=== PATIENT | male | born 1940 | race Caucasian/White ===

== ENCOUNTER → 2017-12-09 | Outpatient (CLI) | payer OTHER, MEDICARE ==
[~2017-12-09] MED LIST: FLOMAX PO; LIPITOR10 MG; PERCOCET 10-321 EACH PO; QUINAPRIL 20 MG20 MG; ZOFRAN4 MG PO
== END ==
LOC: RAD 09:43
DX: R05 Cough (principal)

== ENCOUNTER 2019-08-20 15:57 | Emergency (ER) | payer OTHER ==
[~2019-08-20] VITALS: Ht 175.3 cm; Wt 77.1 kg
--- NOTE | ~2019-08-20 | EMS ---
[address] [address] EMS Patient Care Report Name: KAYLENE KUMAR III Room #: REG RODRIGO Roca#: [id number] Admission: 08/20/19 Attend Phys: Discharge: Date of : 44 Report #: [id number] THIS REPORT FOR: //name// Report Transmitted: 08/20/2019 16:27 EMS Care Summary [facility] MED-ACT Incident [id number] @ 08/20/2019 15:22 Incident Location [address] [place] [address] Patient KAYLENE KUMAR Male, 79 Years 1940 Patient Address [address] [place] [address] Patient History Hypertension,Cardiac - Stent,Type 2 Diabetes, Patient Allergies No known allergies, Patient Medications Metformin, Benicar, Chief Complaint "I stood up and felt like I was going to faint." Disposition Transported No Lights/[place] Dispatch Reason Heart Problems/AICD Transported To [facility] Narrative "I felt like I was going to faint." Dispatched to this location emergent for a male PT with complaints of an irregular heart beat. Arrive on scene to find the PT sitting in a chair with [address] [address] EMS Patient Care Report Name: KAYLENE KUMAR III Room #: REG RODRIGO Roca#: [id number] Admission: 08/20/19 Attend Phys: Discharge: Date of : 42 Report #: [id number] at side. PT reports he was attempting to stand up from the table when he felt like he was going to faint. He reports getting lightheaded and diaphoretic. PT denies any chest pain and denies any SOA. PT denies any palpitations. PT reports having a history of STENT placement in his RCA in 2003. PT denies having a pacemaker. He reports his candlemaker is at [facility]. PT reports one month earlier he had hip replacement surgery. PT denies any complaints while with EMS. EMS notes non conducting PVC's. PT reports prior to his hip replacement surgery he had PVC's as well. PT reports he is scheduled to see his candlemaker on Saturday. Initial Vitals @15:27P: 35,R: 18,BP: 182/76,Pain: 0/10,GCS: 15,SpO2: 99,Revised Trauma: 12,[place] Suspected: false @15:43P: 35,R: 18,BP: 173/72,Pain: 0/10,GCS: 15,SpO2: 98,Revised Trauma: 12, @15:31P: 38,R: 18,BP: 182/78,GCS: 15,Glucose: 130,SpO2: 97,Revised Trauma: 12,[place] Suspected: false Assessments @15:40MENTAL:Person Oriented,Time Oriented,Place Oriented,Event Oriented,SKIN:HEENT:Head/Face: No Abnormalities,Neck/Airway: No Abnormalities,LUNG SOUNDS:General: No Abnormalities,ABDOMEN:General: No Abnormalities,PELVIS//GI:EXTREMITIES:PULSE:NEURO: Impression Cardiac arrhythmia/dysrhythmia Procedures @15:42Saline Lock 10cc (18 ga) Site: Antecubital-LeftResponse: ImprovedSucceeded@15:3112-Lead ECGResponse: ImprovedSucceeded Timeline 15:22,Call Received 15:22,Psap Call 15:22,Dispatched 15:23,En Route 15:26,On Scene 15:27,At Patient 15:27,BP: 182/76 M,PULSE: 35,RR: 18 R,SPO2: 99 Ox,ETCO2: ,BG: ,PAIN: 0,GCS: 15, 15:31,12-Lead ECG,Response: ImprovedSucceeded, 15:31,BP: 182/78 M,PULSE: 38,RR: 18 R,SPO2: 97 Ox,ETCO2: ,B,PAIN: ,GCS: 15, 15:38,Depart Scene 15:42,Saline Lock 10cc 18 ga Site: Antecubital-Left,Response: ImprovedSucceeded, 15:43,BP: 173/72 M,PULSE: 35,RR: 18 R,SPO2: 98 Ox,ETCO2: ,BG: ,PAIN: 0,GCS: 15, 15:54,At Destination 16:15,Call Closed [facility] [address] [place] [address] EMS Patient Care Report Name: KAYLENE KUMAR III Room #: [id number] Admission: 08/20/19 Attend Phys: Discharge: Date of : 42 Report #: [id number] Disclaimer v1.1 Copyright 2019 [employer] This EMS Care Summary contains data elements from the applicable legal record (which may be displayed differently). It is designed to provide pertinent information for the following purposes: continuity of care, clinical quality, and state data reporting. The complete legal record is available to ED staff and administrators of the receiving hospital in [employer] Patient Tracker. All data is provided "as is."
[2019-08-20 16:39] LABS: HEMATOCRIT 38.4 % (42.0-52.0); HEMOGLOBIN 12.7 gm/dL (14.0-18.0); MCH 29.8 pg (26.0-34.0); MCHC 33.1 g/dL (28.0-37.0); MCV 90.1 fL (80.0-100.0); RBC 4.27 mil/uL (4.50-6.00); RDW 13.8 % (10.5-14.5); WBC 7.2 thou/uL (4.0-11.0)
[2019-08-20 16:47] LABS: ANION GAP 9 mmol/L (7-16); BUN 27 mg/dL (7-18); CALCIUM 9.7 mg/dL (8.5-10.1); CHLORIDE 101 mmol/L (98-107); CO2 27 mmol/L (21-32); CREATININE 1.2 mg/dL (0.7-1.3); GLUCOSE 193 mg/dL (74-106); SODIUM 137 mmol/L (136-145)
[2019-08-20 16:56] LABS: TROPONIN-I <0.06 ng/mL (<0.06)
[2019-08-20 20:25] VITALS: BP 137/47
--- NOTE | 2019-08-21 08:06 | EKG ---
[place] [address] [place] [address] ELECTROCARDIOGRAM REPORT Name: KAYLENE KUMAR III 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: [employer] : 1940 Requested By: Blu Thompson Order Number: [id number] MD: Ayden Holly Measurements Intervals [place] Rate: 97 P: 44 [place]: 209 QRS: 53 QRSD: 99 T: -5 QT: 367 QTc: 466 Interpretive Statements Sinus rhythm Ventricular bigeminy Borderline T abnormalities, inferior leads Compared to ECG 10/13/2004 06:57:52 Ventricular premature complex(es) now present Sinus bradycardia no longer present Electronically Signed On 08-21-2019 8:06:16 CDT by Ayden Holly [email or web address] <ELECTRONICALLY SIGNED> By: Ayden Holly MD, [facility] 08/21/19 0806 1607 160 Ayden Holly MD, [facility] /EPI
== END 2019-08-20 20:27 | disposition home or self-care (01) ==
LOC: ER 15:57
PROVIDERS: Emergency Medicine
DX: R55 Syncope and collapse (principal); R00.8 Other abnormalities of heart beat; Z95.2 Presence of prosthetic heart valve; Z96.649 Presence of unspecified artificial hip joint; Z90.89 Acquired absence of other organs

== ENCOUNTER 2019-10-06 06:53 | Observation (INO) | payer OTHER ==
[2019-10-06] VITALS (15 sets, daily range): BP systolic 104–146; BP diastolic 28–67
[~2019-10-06] VITALS: Ht 175.3 cm; Wt 77.1 kg
[2019-10-06] MEDS ORDERED: PROSCAR 5MG TABL5 MG PO (07:31)
[2019-10-06] MEDS ORDERED: JARDIANCE25 MG PO (07:31)
[2019-10-06] MEDS ORDERED: METFORMIN HCL500 M3 PO (07:32)
[2019-10-06] MEDS ORDERED: OLMESARTAN-HCT1 EAC1 PO (07:32)
--- NOTE | 2019-10-06 08:40 | EKG ---
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 Clerk: [facility] : 1940 Requested By: Ayden Holly Order Number: [id number] MD: Chad Nicole Measurements Intervals [place] Rate: 79 P: 45 [place]: 219 QRS: 52 QRSD: 98 T: -1 QT: 401 QTc: 460 Interpretive Statements Sinus rhythm Multiple premature complexes, vent & supraven Borderline prolonged LA interval Borderline repolarization abnormality Compared to ECG 08/20/2019 16:07:56 Ventricular premature complex(es) no longer present T-wave abnormality no longer present Electronically Signed On 10-06-2019 8:40:33 SUPERVISOR MALTED MILK by Chad Nicole [email or web address] <ELECTRONICALLY SIGNED> By: Chad Nicole MD 10/06/19 0840 Chad Nicole MD /EPI
--- NOTE | 2019-10-06 09:37 | CATHLAB ---
[facility] [address] [place] [address] INVASIVE PROCEDURE REPORT Name: KAYLENE KUMAR TOM Room #: 170-1 [facility]#: [id number] Admission: 10/06/19 Attend Phys: Ayden Holly, Discharge: Date of : 42 Report #: [id number] THIS REPORT FOR: //name// APPROVED REPORT Study performed: 10/06/2019 07:56:46 Patient Details Patient Status: Out-Patient Room #: The patient is a 79 year-old male Event Personnel Ayden Holly Hard Candy Batch Mixer, Effie Astorga RTR, OAKES MACHINE OPERATOR Monitor, Dilcia Ratliff RN RN, Beckie Loving RN RN, Joseph Appiah RTR Scrub Procedures Performed Art Access - R femoral artery* Left Heart Cath w/or w/o Coronaries [id number] [facility] Place w/wo Plasty Single OM [id number] [address] Initial Mod Sed Same Phys/QHP Gr5y 677162 37462 Mod Sed Same Phys/QHP Ea 402443 Hemostasis w/ Mynx Indication Chest pain Procedure Narrative The patient was brought electively to the Cardiac Catheterization Laboratory and was prepped and draped in a sterile manner. The Right Groin^ was infiltrated with 1% Lidocaine subcutaneous anesthesia. A PINNACLE 6FR Sheath #[id number] sheath was inserted into the RFA^. Coronary angiography was performed using coronary diagnostic catheters. The right coronary system was accessed and visualized with a JR4 catheter. The left coronary system was accessed and visualized with a JL4 catheter. The left ventricle was accessed and visualized with a angled Pigtail catheter. Left ventricular/Aortic Valve gradient assessed via catheter pullback. Left ventriculogram was performed in 30 degree projection. Closure device was deployed with a 6 Fr MYNXGRIP 6/7F #[id number]. The patient tolerated the procedure well and there were no complications associated with the procedure. There was no hematoma. Intraoperative Conscious Sedation Sedation start time: 07:51 Case end Time: 08:53 Fentanyl 50 mcg Versed [address] [address] INVASIVE PROCEDURE REPORT Name: KAYLENE KUMAR [facility] Room #: [address] [place] [address]#: [id number] Admission: 10/06/19 Attend Phys: Ayden Holly, Discharge: Date of : 42 Report #: [id number] Fluoro Time: 9.44 minutes Dose: DAP 40451.00 cGycm2 1647 mGy Contrast Type and Amount: Omnipaque 215 ml Coronary Angiography The patient's coronary anatomy is right dominant. Diagnostic Cath Left Main Normal left main LAD Normal left anterior descending Diagonal 1 Large first diagonal branch with mild proximal plaquing Diagonal 2 Large proximal bifurcating diagonal branch with mild proximal plaquing (20%) Circumflex Large but nondominant circumflex. 40-50% proximal circumflex plaquing OM1 Severe 95% intrastent stenosis involving the first marginal branch Right Coronary The right coronary is dominant with mild scattered plaquing R PDA Large, angiographically normal posterior descending RPLV 50% mid posterior lateral branch stenosis Left Ventriculography The left ventricle is normal in size with abnormal contractility. The left ventricular ejection fraction is estimated to be 60-65%. Left ventricular wall motion abnormalities are present. There is no mitral insufficiency. Mild hypokinesis involving the base of the inferior wall. Hemodynamics The aortic pressure is 130/55 mmHg with a mean of 82 mmHg. The left ventricular pressure is 135/7 mmHg with a mean of mmHg. The left ventricular end diastolic pressure is 15 mmHg. PCI Technique Lesion Anticoagulation was achieved with Heparin, Integrilin. Patient was preloaded with Plavix. Percutaneous coronary intervention was performed on the first obtuse marginal branch segment. A LAUNCHER 6FR EBU 3.5 #[id number] Guide Catheter was used to engage the left main ostium. A Luge Wire .014 x 182CM #[id number] Interventional Guidewire was used to cross the lesion. BALLOON DILATION A Balloon catheter Euphora RX 2.5 x 10 #[id number] was inserted and [facility] [address] [place] [address] INVASIVE PROCEDURE REPORT Name: KAYLENE KUMAR [facility] Room #: 170-1 ADM IN .R.#: [id number] Admission: 10/06/19 Attend Phys: Ayden Holly, Discharge: Date of : 42 Report #: [id number] inflated up to 8.00atm for 14seconds. Repeat angiography revealed the following post-dilatation results: moderate residual intrastent stenosis. Additional Inflation: 10.00atm for 34seconds. STENT DEPLOYMENT A drug-eluting stent RESOLUTE MARYLOU RX 2.5 X 15 #[id number] was inserted and inflated up to 16.00atm for 30seconds. POST STENT DEPLOYMENT BALLOON DILATION A Balloon catheter TREK NC RX 2.5 X 12 #[id number] was inserted and inflated up to 22.00atm for 32seconds. Additional Inflation: 18.00atm for 27seconds. Additional Inflation: 24.00atm for 26seconds. Final angiography reveals 0 % stenosis with SAM 3 flow. Conclusion 1. Normal left ventricular systolic function with mild hypokinesis involving the base of the inferior wall. Ejection fraction 60%. 2. Normal left main 3. Normal LAD. Mild diagonal branch plaquing 4. Severe first marginal branch intrastent stenosis treated with a 2.5 x 15mm Resolute medicated stent post-dilated to 2.75mm 5. Dominant right coronary with mild plaquing. 50% mid posterior lateral branch stenosis Recommendations Aggressive Medical Therapy <ELECTRONICALLY SIGNED> By: Ayden Holly MD, [facility] 10/06/19936 6 6 Ayden Holly MD, FACC /INF
--- NOTE | 2019-10-06 19:03 | NUR ---
ASSUMMED PT CARE AT APPROXIMATELY 1000. PT A&O X4. ASSESSMENT CHARTED. FALL PRECAUTIONS IN PLACE. PT DENIES HAVING CHEST PAIN. PT DENIES HAVING SOB. PT DENIES HAVING ACUTE PAIN. PT AND PT'S FAMILY EDUCATED ABOUT POC. PT AND PT'S FAMILY STATED UNDERSTANDING AND DENIED HAVING FURTHER CONCERNS. PT POST CATH. PT R GROIN C/D/I. NO HEMATOMA. POST PROCEDURAL VITAL SIGNS COMPLETE. VITAL SIGNS STABLE. PT OFF BEDREST. PT AMBULATES STEADY/INDEPENDENT. NOTIFIED WIND FARM OPERATIONS MANAGER OF ELEVATED BLOOD SUGAR. WIND FARM OPERATIONS MANAGER STATED TO HAVE THE BLOOD SUGAR REDRAWN AT HS AND IF NEEDED TO START A LOW SLIDING SCALE INSULIN IF INDICATED. NOTIFIED FAMILY CONSULTANT NURSE. FAMILY CONSULTANT NURSE STATED UNDERSTANDING AND DENIED HAVING FURTHER CONCERNS. PT COMFORTABLE IN BED. PT DENIES HAVING FURTHER CONCERNS. ADMISSION PROCESS COMPLETE.
[2019-10-07 00:31] VITALS: BP 116/57
[2019-10-07 05:03] VITALS: BP 134/53
[2019-10-07 05:39] LABS: HEMATOCRIT 41.6 % (42.0-52.0); HEMOGLOBIN 13.9 gm/dL (14.0-18.0); MCH 29.4 pg (26.0-34.0); MCHC 33.3 g/dL (28.0-37.0); RBC 4.72 mil/uL (4.50-6.00); RDW 13.9 % (10.5-14.5); WBC 6.3 thou/uL (4.0-11.0)
[2019-10-07 05:53] LABS: ALBUMIN 3.5 g/dL (3.4-5.0); ANION GAP 7 mmol/L (7-16); BUN 20 mg/dL (7-18); CALCIUM 10.1 mg/dL (8.5-10.1); CHLORIDE 108 mmol/L (98-107); CO2 25 mmol/L (21-32); CREATININE 0.9 mg/dL (0.7-1.3); GLUCOSE 135 mg/dL (74-106); POTASSIUM 4.4 mmol/L (3.5-5.1); SGOT 16 U/L (15-37); SGPT 23 U/L (30-65); SODIUM 140 mmol/L (136-145); TOTAL BILIRUBIN 0.7 mg/dL (<0.1-1.0); TOTAL PROTEIN 6.7 g/dL (6.4-8.2); TROPONIN-I 0.07 ng/mL (<0.06)
[2019-10-07 06:32] LABS: CHOLESTEROL 136 mg/dL (<200); HDL CHOLESTEROL 59 mg/dL (>40); LDL CHOLESTEROL 66 mg/dL (<100); TC:HDL 2.3 Ratio (Not establshd); TRIGLYCERIDE 58 mg/dL (<150); VLDL 12 mg/dL (<40)
[2019-10-07 06:34] LABS: SERUM ASSESSMENT Clear
[2019-10-07] MEDS ORDERED: ASPIR 8181 MG PO (07:34)
[2019-10-07] MEDS ORDERED: CLOPIDOGREL75 MG PO (07:34)
[2019-10-07] MEDS ORDERED: METOPROLOL SUCC25 M1 PO (07:34)
[2019-10-07] MEDS ORDERED: LIPITOR40 MG PO (07:34)
--- NOTE | 2019-10-07 08:16 | NUR ---
pt up adlib in room, no c/o pain , r groin cdi, vss, pt hoping to go home today, report given to next shift to con't ppoc.
--- NOTE | 2019-10-07 08:33 | EKG ---
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 : 1940 Requested By: Ayden Holly Order Number: [id number] MD: Chad Nicole Measurements Intervals [place] Rate: 53 P: 25 [place]: 240 QRS: 52 QRSD: 97 T: -4 QT: 396 QTc: 372 Interpretive Statements Sinus rhythm Ventricular bigeminy Prolonged HI interval RSR' in V1 or V2, probably normal variant Borderline T abnormalities, inferior leads Compared to ECG 10/06/2019 07:23:18 Electronically Signed On 10-07-2019 8:33:23 COMMUNITY ACTION WORKER by Chad Nicole [email or web address] <ELECTRONICALLY SIGNED> By: Chad Nicole MD 10/07/19 0833 1025 1025 Chad Nicole MD /EPI
--- NOTE | 2019-10-07 08:42 | EKG ---
[address] [address] ELECTROCARDIOGRAM REPORT Name: KAYLENE KUMAR [facility] Room #: 205-[facility]..#: [id number] Admission: 10/06/19 Attend Phys: Ayden Holly MD, Discharge: Date of : 42 Report #: [id number] THIS REPORT FOR: //name// [facility] Test Date: 2019-10-07 Test Time: 07:16:39 Pat Name: KAYLENE KUMAR Department: Room: 205 Gender: M Business Intelligence Engineer: Kenneth WEEMS : 1940 Requested By: Ayden Holly Order Number: [id number] MD: Chad Nicole Measurements Intervals [place] Rate: 54 P: 21 [place]: 188 QRS: 69 QRSD: 96 T: 16 QT: 391 QTc: 371 Interpretive Statements Sinus rhythm Multiple ventricular premature complexes Compared to ECG 10/06/2019 07:23:18 Electronically Signed On 10-07-2019 8:41:58 HARNESSMAKER by Chad Nicole [email or web address] <ELECTRONICALLY SIGNED> By: Chad Nicole MD 10/07/19 0841 5 5 Chad Nicole MD /ARIADNE
[2019-10-07 08:58] VITALS: BP 136/64
[2019-10-07 10:13] VITALS: BP 136/64
[2019-10-07 10:53] VITALS: BP 149/59
--- NOTE | 2019-10-07 11:38 | NUR ---
ASSUMMED PT CARE AT APPROXIMATELY 0700. PT A&O X4. ASSESSMENT CHARTED. FALL PRECAUTIONS IN PLACE. PT DENIES HAVING CHEST PAIN. PT DENIES HAVING SOB. PT DENIES HAVING ACUTE PAIN. PT DISCHARGING HOME C SELF CARE. PT AND PT'S SPOUSE RECEIVED DISCHARGE EDUCATION. PT AND PT'S SPOUSE STATED UNDERSTANDING AND DENIED HAVING FURTHER QUESTIONS. VITAL SIGNS STABLE. BLOOD SUGARS STABLE. IV DC. TELE DC. R GROIN SITE C/D/I. NO HEMATOMA. PT RECEIVING HOSPITAL TRANSPORT TO TRANSPORT OFF UNIT. PT'S SPOUSE DRIVING PT HOME. PT DENIES HAVING FURTHER CONCERNS. PT AMBULATES STEADY/INDEPENDENT.
--- NOTE | 2019-10-09 09:29 | D ---
[facility] [place] [address] DISCHARGE SUMMARY Name: KAYLENE KUMAR TOM Room #: 205-P [facility] Jah Roca#: [id number] Admission: 10/06/19 Attend Phys: Ayden Holly MD, Discharge: 10/07/19 Date of : 42 Report #: [id number] THIS REPORT FOR: //name// CC: Ayden Holly [facility] DISCHARGE DIAGNOSES: 1. Syncope. 2. Paroxysmal ventricular tachycardia seen on outpatient event recorder monitoring. 3. Coronary artery disease with severe first marginal branch stenosis stented with a 2.5 x 15 mm Resolute medicated stent postdilated to 2.75 mm. 4. Mild ischemic cardiomyopathy; normal ejection fraction with mild inferobasal hypokinesis. 5. Dyslipidemia. 6. Hypertension. 7. Bilateral carotid stenoses. 8. Diabetes, type 2. HISTORY OF PRESENT ILLNESS: For the complete history of present illness, see dictated history and physical and office notes. 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 He had a recent syncopal episode, leading to placement of a 30-day event recorder. This event recorder demonstrated paroxysms of ventricular tachycardia and very frequent ventricular ectopy. Coronary angiography was undertaken. HOSPITAL COURSE: The patient underwent coronary angiography. The full details of this can be found under separate heading and dictation. In summary, left ventricular systolic function was found to be normal with minimal inferior basal hypokinesis. The left main and LAD were normal. The first marginal branch of the circumflex exhibited a severe intrastent stenosis. This was ballooned and restented with a 2.5 x 15 mm Resolute stent postdilated to 2.75 mm. The right coronary was dominant with mild plaquing. Medical therapy was recommended. His post-procedural course was uneventful. He was treated with heparin, aspirin, Plavix and Integrilin in the periprocedural setting. He was ambulating with excellent groin hemostasis at the time. DISCHARGE MEDICINES: Include atorvastatin 40 mg daily, Proscar 5 mg daily, Jardiance 25 mg daily, metformin 500 mg twice daily, olmesartan HCT 40/12.5 one daily and Toprol-XL 25 mg daily. Due to his history of paroxysmal ventricular tachycardia, arrangements were made for outpatient electrophysiologic evaluation and probable EP study. Discharge medicines were reconciled. [address] [address] DISCHARGE SUMMARY Name: KAYLENE KUMAR [facility] Room #: 205-P [facility] Chanelle#: [id number] Admission: 10/06/19 Attend Phys: Ayden Holly MD, Discharge: 10/07/19 Date of : 44 Report #: [id number] DISCHARGE DIET: Low fat, low cholesterol, prudent diabetic diet. DISCHARGE ACTIVITY: As instructed post-stenting. DISCHARGE FOLLOWUP: With myself in 4-6 weeks. DISCHARGE CONDITION: Stable and improved. <ELECTRONICALLY SIGNED> By: Ayden Holly MD, [facility] 10/09/19 0929 1710 1843 Ayden Holly MD, [facility] /nt
== END 2019-10-07 11:55 | disposition home or self-care (01) ==
LOC: CATH 06:53 → EROBS 08:44 → 2N 11:04 → CATH 12:55 → ENTRNSPT 10-07 10:52 → EDTRNSPTSTS 10-07 11:03 → 2N 10-07 11:55
PROVIDERS: ADMIT Internal Medicine
DX: I25.10 Atherosclerotic heart disease of native coronary artery without angina pectoris (principal); I47.2 Ventricular tachycardia; E78.5 Hyperlipidemia, unspecified; I10 Essential (primary) hypertension; I65.23 Occlusion and stenosis of bilateral carotid arteries; E11.9 Type 2 diabetes mellitus without complications

== ENCOUNTER 2019-11-09 06:23 | Outpatient (CLI) | payer OTHER ==
[2019-11-09] VITALS (10 sets, daily range): BP systolic 105–131; BP diastolic 47–75
[~2019-11-09] VITALS: Ht 175.3 cm; Wt 83.6 kg
[~2019-11-09 06:23] MED LIST changes: +ASPIR 8181 MG PO; +CLOPIDOGREL75 MG PO; +JARDIANCE25 MG PO; +LIPITOR40 MG PO; +METFORMIN HCL500 M3 PO; +METOPROLOL SUCC25 M1 PO; +OLMESARTAN-HCT1 EAC1 PO; +PROSCAR 5MG TABL5 MG PO
[2019-11-09 07:24] LABS: ABSOLUTE NEUTROPHILS 3.3 thou/uL (1.4-8.2); BASOPHILS 0.6 % (0.0-2.0); EOSINOPHILS 5.5 % (0.0-3.0); HEMATOCRIT 47.4 % (42.0-52.0); HEMOGLOBIN 15.8 gm/dL (14.0-18.0); MCH 29.3 pg (26.0-34.0); MCHC 33.3 g/dL (28.0-37.0); MCV 87.9 fL (80.0-100.0); MONOCYTES 7.1 % (1.0-8.0); PLATELET COUNT 189 thou/uL (150-400); POLYS 57.8 % (36.0-66.0); RDW 14.5 % (10.5-14.5); WBC 5.7 thou/uL (4.0-11.0)
[2019-11-09 07:37] LABS: INR 1.1; PROTIME 10.8 Seconds (9.3-11.4)
[2019-11-09 07:46] LABS: ALBUMIN 4.4 g/dL (3.4-5.0); CALCIUM 10.6 mg/dL (8.5-10.1); POTASSIUM 4.1 mmol/L (3.5-5.1); TOTAL BILIRUBIN 0.6 mg/dL (<0.1-1.0); TOTAL PROTEIN 7.9 g/dL (6.4-8.2)
--- NOTE | 2019-11-09 19:15 | NUR ---
ASSUMED CARE AT 1500, SHIFT ASSESSMENT DONE, MEDS GIVEN, VSS, DENIES PAIN, NAUSEA, VOMITING. POST CATH, HAD ABLATION DONE FOR SVTs, PT IS BRADYCARDIC ON THE MONITOR, CAN GO LOW 35, AWARE. BEDREST WAS DONE AT 1830, JONES WAS TAKEN OUT. PT WAS ABLE TO GO TO THE BATHROOM. WILL CONTINUE TO ASSESS AND ASSIST WITH ADLs NEEDED.
[2019-11-10 00:19] VITALS: BP 115/57
--- NOTE | 2019-11-10 04:23 | NUR ---
PT UP ADLIB AMBULATING IN CINTRON WITHOUT ANY DIFFICULTY, BILAT GROIN SITES REMAIN INTACT, NO C/O PAIN, VSS, RESTING QUIETLY IN ROOM THROUGH THE NIGHT, WILL CON'T TO MONITOR PER PPOC.
[2019-11-10 04:51] VITALS: BP 123/53
[2019-11-10 07:25] VITALS: BP 118/47
[2019-11-10 09:16] VITALS: BP 118/47
--- NOTE | 2019-11-10 11:05 | NUR ---
ASSUMED CARE AT 0700, SHIFT ASSESSMENT DONE, MEDS GIVEN, VSS. DENIES PAIN, NAUSEA, VOMITING. CATH SITES ARE CLEAN, DRY, INTACT. DISCHARGE ORDER RECEIVED, PERIPHERAL IVs WERE TAKEN OUT .TELE MONITOR DC'D. DISCHARGRE PAPER WORK GIVEN. PT LEFT WITH FAMILY AT 1045.
--- NOTE | 2019-11-19 17:33 | D ---
[facility] [place] [address] DISCHARGE SUMMARY Name: KAYLENE KUMAR TOM Room #: [facility] Chanelle#: [id number] Admission: 11/09/19 Attend Phys: Chad Nicole MD Discharge: 11/10/19 Date of : 44 Report #: [id number] THIS REPORT FOR: //name// CC: Chad Nicole [facility] DISCHARGE DIAGNOSES: 1. Nonsustained ventricular tachycardia. 2. Frequent premature ventricular contractions. PROCEDURE PERFORMED: VT ablation. HISTORY: The patient is a 79-year-old with history of coronary artery disease, status post inferior FL who has recently been having increased lightheaded spells and fatigue and was noted to have frequent PVCs with a burden of around 30% on a monitoring specialist. He has had some episodes of nonsustained VT noted. He was here for EP study and ablation. He underwent an EP study and he did not have inducible sustained ventricular tachycardia, but he was found to have a frequent PVC morphology that was arising from the inferior septum in the left ventricle. This was successfully ablated and rendered non-inducible. HOSPITAL COURSE: He was monitored in the CCU overnight and did well. On the day of discharge, he denied any chest pain or shortness of breath. He denied any fevers or chills. PHYSICAL EXAMINATION: GENERAL: No acute distress. HEART: Regular rate and rhythm. LUNGS: Clear to auscultation bilaterally. ABDOMEN: Soft, nontender, nondistended. EXTREMITIES: No clubbing, cyanosis, or edema and his bilateral groins showed no bruising or hematomas. On telemetry, he remained in sinus rhythm with no recurrence of his PVCs. As such, he was stable for discharge home. Discharge instructions were reviewed and he was discharged on his same home medications. <ELECTRONICALLY SIGNED> By: Chad Nicoel MD 11/19/19 1733 0846 0908 Chad Nicole MD /nt
--- NOTE | 2019-11-19 17:33 | P ---
[facility] [place] [address] PROCEDURE REPORT Name: KAYLENE KUMAR TOM [facility] [id number] Admission: 11/09/19 Attend Phys: Chad Nciole MD Discharge: 11/10/19 Date of : 44 Report #: [id number] THIS REPORT FOR: //name// CC: Chad Montaño VT ABLATION PREOPERATIVE DIAGNOSES: 1. Frequent premature ventricular contractions. 2. Nonsustained ventricular tachycardia. 3. Coronary artery disease, status post myocardial infarction. PROCEDURES PERFORMED: 1. VT ablation, CPT code 88835. 2. EP with left atrial pacing and recording, CPT code 83226. 3. Program stimulation and pacing after IV drug infusion, CPT code 19064. 4. Intracardiac echocardiogram, CPT code 84264. 5. Arterial line placement, CPT code 82295. HISTORY: The patient is a 79-year-old with history of coronary artery disease, status post inferior [place] with normal ejection fraction who recently having palpitations and lightheadedness with a mill oiler showing a PVC burden of around 30%. There is also evidence of nonsustained VT noted as well. He is here for EP study, possible PVC ablation, possible VT ablation and possible ICD implantation. ANESTHESIA: The patient underwent MAC anesthesia with no anesthesia related complications. DESCRIPTION OF PROCEDURE: The patient underwent informed consent. We discussed the details of the procedure including the risks, which include but not limited to bleeding, vascular damage, stroke, [place], cardiac perforation as well as damage to the [place] conduction system requiring permanent pacemaker. He understood these risks and is willing to proceed. The patient was brought to the EP laboratory in a fasting and sedated state. In the right femoral artery, I placed an 8-Tuvaluan short sheath; in the right femoral vein, I placed an 8 and 9-Tuvaluan short sheath; and in the left femoral vein, I placed a 6 and 7-Tuvaluan short sheath. Sheaths were positioned using the modified Seldinger technique. Next, under fluoroscopy, an ice catheter was placed into the right atrium and RV catheter was placed in the right ventricular apex and a decapolar catheter was placed in the coronary sinus for left atrial pacing and recording. At baseline, the patient was in sinus rhythm with a sinus cycle length of 1030 milliseconds, TN interval 180 milliseconds, QRS duration 100 milliseconds and QT [facility] [address] [place] [address] PROCEDURE REPORT Name: KAYLENE KUMAR III Room #: DEP Pauline Roca#: [id number] Admission: 11/09/19 Attend Phys: Chad Nicole MD Discharge: 11/10/19 Date of : 44 Report #: [id number] interval 345 milliseconds. The patient was also having frequent PVCs every 3-5 beats. These PVCs were noted to be isoelectric to slightly right bundle branch block morphology in V1. There was positive concordance in the precordial leads. The PVCs were negative in leads II, III and aVF and positive in lead 1. A basic EP study was first performed. At baseline, there was no VA conduction. VERP was noted at 220 milliseconds at a [address] cycle length. Ventricular stimulation was performed at cycle lengths of 500 and 400 milliseconds with up to 3 ventricular extrastimuli. No inducible ventricular tachycardia was induced. Atrial burst pacing was performed and AV block was noted at 520 milliseconds. AV denis ERP was noted at 420 milliseconds at a [address] cycle length. Next, isoproterenol infusion was initiated at 1 mcg per minute. AV block was noted at 440 milliseconds. AV denis ERP was noted at 380 milliseconds at a [address] cycle length. Ventricular ERP was noted at 220 milliseconds at a [address] cycle length. Again, ventricular stimulation was performed on isoproterenol and there was no sustained ventricular tachycardia. As such, I decided to proceed with a PVC ablation. The patient was systemically heparinized and a PentaRay catheter was taken retrograde into the left ventricle. We created a detailed 3D geometry and as suspected this PVC was arising from the inferior septum. I did label the His bundle from the left ventricular outflow tract. The PVCs were arising about 10 mm below the His bundle. I quickly transitioned over to a Revolve.Touch ThermoCool ablation catheter and created a more detailed activation map of the PVC and it was clearly arising from this location as suggested by the PVC morphology in 12 lead. I found a location where it appeared that I was approximately 20 milliseconds preceding the PVC. I performed 4 ablation lesions here at 50 [place] 55 degrees. My contact was around 5-10 at this site. The patient's PVC morphology did change after performing ablation at this site. It was much more fractionated. There was a more notching in leads II, III and aVF and there was almost more of a left bundle branch morphology now in lead V1. However, this was essentially the same PVC. I performed 2 additional ablation lesions, which had no effect and then I performed additional mapping and then I found a very nice signal with a highly fractionated signal preceding the PVC that was about 27 milliseconds earlier than the PVC. At this site, I performed ablation and the patient had a burst of his PVCs for about 5-7 beats and then there was no further PVCs at this site. I performed 2 additional ablation lesions at the same site and one was slightly caudal to the other lesion set. I attempted to perform pace mapping at this site prior to ablation, but there was no capture, but I did have good contact and around 10-15 grams of force at this site. POST-ABLATION FINDINGS: Post-ablation, the patient was still on isoproterenol, which we never stopped during the ablation. I again performed an additional round of a ventricular stimulation to ensure that there was no sustained ventricular tachycardia. There was not really much scar tissue noted based on my voltage map in the left ventricle. We monitored for a period of 30-40 minutes and we had no further PVCs. As such, using intracardiac ultrasound, I [facility] [address] [place] [address] PROCEDURE REPORT Name: KAYLENE KUMAR III [facility]: [facility]ITALReinaldo.#: [id number] Admission: 11/09/19 Attend Phys: Chad Nicole MD Discharge: 11/10/19 Date of : 44 Report #: [id number] verified that there was no pericardial effusion. Intracardiac ultrasound was utilized for this case to delineate the aortic valve and also to clearly delineate both papillary muscles, but these were not structures involved in this PVC. The patient then received systemic protamine and once the ACT was within acceptable range, all catheters and sheaths were pulled and hemostasis was obtained. The patient awoke neurologically and hemodynamically intact. No complications and no significant bleeding. Of note, his HV interval was 37 milliseconds measured at the left ventricular outflow tract. CONCLUSIONS: 1. Successful ablation of a focal PVC arising from the inferior septum within the left ventricle. 2. No inducible sustained monomorphic ventricular tachycardia, therefore, no ICD required. 3. 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 4. Normal AV denis function. 5. Normal His-Purkinje function. 6. No other inducible arrhythmias on or off isoproterenol. <ELECTRONICALLY SIGNED> By: Chad Nicole MD 11/19/19 1733 [id number] Chad Nicole MD /nt
== END 2019-11-10 11:19 | disposition home or self-care (01) ==
LOC: CATH 06:23 → 2N 15:19 → CATH 19:37
PROVIDERS: Internal Medicine Cardiovascular Disease
DX: I49.3 Ventricular premature depolarization (principal); I47.2 Ventricular tachycardia; I25.10 Atherosclerotic heart disease of native coronary artery without angina pectoris; I25.2 Old myocardial infarction; I10 Essential (primary) hypertension; E78.5 Hyperlipidemia, unspecified; E11.9 Type 2 diabetes mellitus without complications; M19.90 Unspecified osteoarthritis, unspecified site; Z98.890 Other specified postprocedural states; Z96.649 Presence of unspecified artificial hip joint; Z79.899 Other long term (current) drug therapy; Z79.82 Long term (current) use of aspirin
CPT/HCPCS: 10081; 62110; 62900; 65020; 65040; 70005

== ENCOUNTER → 2020-02-11 | Outpatient (CLI) | payer OTHER | LOC: SJCVC 15:56 | DX: R00.1 Bradycardia, unspecified (principal); R94.31 Abnormal electrocardiogram [ECG] [EKG]; I25.10 Atherosclerotic heart disease of native coronary artery without angina pectoris; I25.5 Ischemic cardiomyopathy; I10 Essential (primary) hypertension; E78.5 Hyperlipidemia, unspecified; Z79.899 Other long term (current) drug therapy; Z87.891 Personal history of nicotine dependence ==

== ENCOUNTER → 2020-08-15 | Outpatient (CLI) | payer OTHER | LOC: SJCVCIMAG 08:22 | PROVIDERS: ATTEND Internal Medicine Cardiovascular Disease | DX: I08.8 Other rheumatic multiple valve diseases (principal); I11.9 Hypertensive heart disease without heart failure; E78.5 Hyperlipidemia, unspecified; I25.10 Atherosclerotic heart disease of native coronary artery without angina pectoris; E11.9 Type 2 diabetes mellitus without complications; I25.2 Old myocardial infarction; Z79.899 Other long term (current) drug therapy; Z87.891 Personal history of nicotine dependence ==

== ENCOUNTER → 2020-08-18 | Outpatient (CLI) | payer OTHER | LOC: SJCVC 13:00 | PROVIDERS: ATTEND Internal Medicine Cardiovascular Disease | DX: R94.31 Abnormal electrocardiogram [ECG] [EKG] (principal); I44.0 Atrioventricular block, first degree; I49.8 Other specified cardiac arrhythmias; I49.3 Ventricular premature depolarization; I25.10 Atherosclerotic heart disease of native coronary artery without angina pectoris ==

== ENCOUNTER → 2020-10-20 | Outpatient (CLI) | payer OTHER | LOC: SJCVC 13:20 | PROVIDERS: ATTEND Internal Medicine | DX: I44.0 Atrioventricular block, first degree (principal); I49.3 Ventricular premature depolarization; I25.10 Atherosclerotic heart disease of native coronary artery without angina pectoris; I10 Essential (primary) hypertension; E78.5 Hyperlipidemia, unspecified; I65.23 Occlusion and stenosis of bilateral carotid arteries; E78.00 Pure hypercholesterolemia, unspecified; I25.2 Old myocardial infarction; Z72.89 Other problems related to lifestyle; Z87.891 Personal history of nicotine dependence; Z79.899 Other long term (current) drug therapy ==

== ENCOUNTER → 2021-04-12 | Outpatient (CLI) | payer OTHER | LOC: SJCVC 13:43 | PROVIDERS: ATTEND Internal Medicine Cardiovascular Disease | DX: R94.31 Abnormal electrocardiogram [ECG] [EKG] (principal); I49.9 Cardiac arrhythmia, unspecified; I25.10 Atherosclerotic heart disease of native coronary artery without angina pectoris; I10 Essential (primary) hypertension; E78.5 Hyperlipidemia, unspecified; I49.3 Ventricular premature depolarization; I65.23 Occlusion and stenosis of bilateral carotid arteries; E78.00 Pure hypercholesterolemia, unspecified; I25.2 Old myocardial infarction; Z95.5 Presence of coronary angioplasty implant and graft; Z79.899 Other long term (current) drug therapy; Z87.891 Personal history of nicotine dependence; Z82.49 Family history of ischemic heart disease and other diseases of the circulatory system ==

== ENCOUNTER → 2021-12-29 | Outpatient (CLI) | payer OTHER | LOC: SJCVC 10:00 | PROVIDERS: ATTEND Internal Medicine | DX: E78.5 Hyperlipidemia, unspecified (principal) ==